=== PATIENT | female | born 1975 | race Caucasian/White ===

== ENCOUNTER → 2018-11-26 12:05 | Outpatient (CLI) | payer OTHER, SELFPAY ==
--- NOTE | 2018-11-26 | DI.US.S_ITS ---
PROCEDURE: US THYROID INDICATIONS: ROUTINE SCREENING GOITER TECHNIQUE: Real-time scanning was performed of the thyroid gland, with image documentation. COMPARISON: None. FINDINGS: Right: Thyroid lobe measures 4.4 x 1.1 x 1.2 cm, and is homogeneous in echotexture. Small colloid cyst. Left: Thyroid lobe measures 4.7 x 1.2 x 1.6 cm, and is homogenous in echotexture. Small colloid cyst. Isthmus: 2.0 mm thick. IMPRESSION: Multiple sub-5 mm bilateral colloid cyst; otherwise normal thyroid. Dictated by: Mikal LEY Interpreted: Silvino Larson MD on 11/26/2018 at 15:47 Approved by: Silvino Larson M.D. on 11/26/2018 at 17:14
--- NOTE | 2018-11-26 | DI.MG.S_ITS ---
BILATERAL DIGITAL SCREENING MAMMOGRAM 3D/2D WITH CAD: 11/26/2018 CLINICAL: Routine screening. Comparison is made to exam dated: 06/07/2016 mammogram - [facility]. The tissue of both breasts is heterogeneously dense. This may lower the sensitivity of mammography. Current study was also evaluated with a Computer Aided Detection (CAD) system. There are grouped calcifications in the left breast at 12 o'clock middle depth. There also are grouped calcifications in the left breast middle depth inferior region seen on the mediolateral oblique view only. No other significant masses, calcifications, or other findings are seen in either breast. IMPRESSION: INCOMPLETE: NEEDS ADDITIONAL IMAGING EVALUATION The grouped calcifications in the left breast at 12 o'clock middle depth are indeterminate. Spot magnification views are recommended. The grouped calcifications in the left breast middle depth inferior region seen on the mediolateral oblique view only are indeterminate. Spot magnification views are recommended. This exam was interpreted at Station ID: [id number]. NOTE: For mammograms, a report in lay terms will be sent to the patient. Approximately 15% of breast malignancies will not be visualized mammographically. In the management of a palpable breast mass, a negative mammogram must not discourage biopsy of a clinically suspicious lesion. Electronically Signed By: gamaliel Murillo M.D., M.D./adam:11/28/2018 10:43:11 letter sent: Additional Imaging Needed ACR BI-RADS Category 0: Incomplete [id number]
== END ==
PROVIDERS: Family Provider Family Medicine; PCP Family Medicine; Visit Provider Family Medicine
DX: Z12.31 Encounter for screening mammogram for malignant neoplasm of breast (principal); E04.2 Nontoxic multinodular goiter
CPT/HCPCS: 76536; 77063; 77067

== ENCOUNTER → 2018-12-18 12:36 | Outpatient (CLI) | payer OTHER, SELFPAY ==
--- NOTE | 2018-12-18 | DI.MG.S_ITS ---
UNILATERAL LEFT DIGITAL DIAGNOSTIC MAMMOGRAM 3D/2D WITH ADDITIONAL VIEWS: 12/18/2018 CLINICAL: Additional evaluation requested from prior study. Comparison is made to exams [facility]: [facility] and 06/07/2016 mammogram - [facility]. The tissue of left breast is heterogeneously dense. This may lower the sensitivity of mammography. The grouped coarse calcifications in the left breast (described as being at 12 o'clock middle depth and in the left breast middle depth inferior region seen on the mediolateral oblique view only on comparison screening mammogram of 11/26/18) persist with additional magnification views. These appear largely stable to comparison exam of 06/07/16. There is also a single puncate calcification of the left nipple. IMPRESSION: PROBABLY BENIGN Left breast calcifications as described above persist with additional magnification views. A follow-up diagnostic mammogram in 6 months is recommended to demonstrate stability. The patient is advised to monitor her breasts and to return sooner for reevaluation if she feels anything grow or change in her breasts. This exam was interpreted at Station ID: [id number]. NOTE: For mammograms, a report in lay terms will be sent to the patient. Approximately 15% of breast malignancies will not be visualized mammographically. In the management of a palpable breast mass, a negative mammogram must not discourage biopsy of a clinically suspicious lesion. Electronically Signed By: Domingo Armas M.D. ecl/:12/18/2018 13:35:02 letter sent: Followup Recommended ACR BI-RADS Category 3: Probably benign 3343F
== END ==
PROVIDERS: Family Provider Family Medicine; PCP Family Medicine; Visit Provider Family Medicine
DX: R92.1 Mammographic calcification found on diagnostic imaging of breast (principal)
CPT/HCPCS: 77065; G0279

== ENCOUNTER 2020-04-16 12:39 | Emergency (ER) | payer OTHER, SELFPAY ==
[2020-04-16 12:52] VITALS: BP 130/62; PULSE 60; RESP 16; TEMP 37.1; O2SAT 100; BMI 22.6
--- NOTE | 2020-04-16 13:37 | DI.RAD.S_ITS ---
PROCEDURE: XR LUMBAR SPINE 2-3V INDICATIONS: low back pain TECHNIQUE: 3 views of the lumbar spine were acquired. COMPARISON: None. FINDINGS: Bones: 5 vhl-hvy-ikexgpy vertebrae are present. There is normal bony alignment. No vertebral body compression fractures. No suspicious bony lesions. Soft tissues: Overlying bowel gas pattern is normal. No suspicious soft tissue calcifications. IMPRESSION: No evidence acute bony abnormality of the lumbar spine. If clinical suspicion and/or symptoms persist, further assessment with repeat plain films, or advanced imaging (e.g., CT, MRI, or bone scan) may be helpful for further assessment. Dictated by: Jamie Van M.D. on 04/16/2020 at 14:03 Approved by: Jamie Van M.D. on 04/16/2020 at 14:03
[2020-04-16] MEDS: CYCLOBENZAPRINE 10 MG TABLET PO (13:45)
[2020-04-16] MEDS: LIDOCAINE PATCH 1 EACH ADH..PATCH TOP (13:46)
[2020-04-16] MEDS: HYDROCODONE/ACET 5/325 TABLET 1 TAB PO ×2 (13:46→14:52)
[2020-04-16] MEDS: predniSONE 20 MG TABLET 60 MG PO (14:52)
--- NOTE | 2020-04-16 14:55 | ED_ITS ---
HPI - Back Pain/Injury <SIENNA Mcknight - Last Filed: 04/16/20 15:38> General Chief Complaint: Back Pain/Injury Stated Complaint: sciatica Time Seen by Provider: 04/16/20 12:54 Source: patient and family Mode of arrival: Family Vehicle Limitations: no limitations History of Present Illness HPI Narrative: The patient is a 44-year-old female nonsmoker who denies pertinent medical history, presents with a chief complaint of severe sciatica. She states that she has had this ongoing for the past 4 5 days after physical therapy session. She states she has never been diagnosed with sciatica, though thinks that is what she has. She states that her pain got really severe over the past 4 days, so much so she could not ambulate around the house and was lying flat on her back in the bed for the past few days. She notes that after she walked down the stairs this morning her pain was so bad that she ?collapsed.She has not taken anything for pain at home. She has not applied ice, or taken vpmw-qve-mblbzhy medications. She was seen by paramedics on [facility] where she lives, who gave her IM Toradol. She denies any incontinence of bowel, incontinence of bladder or numbness in her groin. She presents requesting an MRI today. She states that the pain feels like electric shocks running down the back of both of her legs. Related Data Previous Rx's Medication Instructions Recorded cyclobenzaprine 10 mg PO TID PRN #20 tab 04/16/20 hydrocodone-acetaminophen [[place]] 1 tab PO Q4-6H PRN #14 tab 04/16/20 lidocaine 1 patch TOPICAL DAILY PRN #15 ea 04/16/20 prednisone 50 mg PO DAILY #4 tab 04/16/20 Allergies Allergy/AdvReac Type Severity Reaction Status Date / Time No Known Drug Allergies Allergy Verified 04/16/20 14:51 Review of Systems <SIENNA Mcknight - Last Filed: 04/16/20 15:38> Review of Systems Narrative: GENERAL: Denies chills, fatigue, malaise, fever, sweats. HEENT: Denies sinus pain, ear pain, sore throat, difficulty swallowing, dizziness. RESPIRATORY: Denies dyspnea, cough, wheezing, hemoptysis, sputum. CARDIOVASCULAR: Denies chest pain, palpitations, orthopnea, edema, GASTROINTESTINAL: Denies nausea, vomiting, abdominal pain, diarrhea, constipation, melena. : Denies dysuria, frequency, incontinence, hematuria, urinary retention. MUSCULOSKELETAL: See HPI SKIN: Denies rash, skin lesions, or other NEUROLOGIC: Denies weakness, headache, numbness, change in speech, confusion, seizures, incoordination. PSYCHIATRIC: No concerning psychosocial issues. 12 point review of systems is negative except for those stated above Exam <MIGUEL Mcknight-BC - Last Filed: 04/16/20 15:38> Narrative Exam Narrative: GENERAL: This is a well-nourished, well-developed patient, in mild distress slightly tearful. HEAD: Atraumatic. Normocephalic. No temporal or scalp tenderness. EYES: Pupils equal round and reactive. Extraocular motions intact. No scleral icterus. No injection or drainage. ENT: Nose without bleeding, purulent drainage or septal hematoma. Wearing a mask. Airway patent. NECK: Trachea midline. No JVD or lymphadenopathy. Supple, nontender, no meningeal signs. CARDIOVASCULAR: Regular rate and rhythm RESPIRATORY: Clear to auscultation. Breath sounds equal bilaterally. No wheezes, rales, or rhonchi. No cough. No increased respiratory effort. No accessory muscle use GASTROINTESTINAL: Abdomen soft, non-tender, nondistended. No hepato- splenomegaly, or palpable masses. No guarding. EXTREMITIES: No clubbing, cyanosis, or edema. No joint tenderness, effusion, or edema noted. BACK: Midline CT and L-spine are Nontender without deformity or crepitance. No flank tenderness. Pain to palpation bilateral paraspinal muscles lumbar region. Pain on leg raise test bilaterally NEURO: AOx3. SKIN: No rash or erythema on visible skin Initial Vital Signs Initial Vital Signs: Vital Signs Temperature 98.8 F 04/16/20 12:52 Pulse Rate 60 04/16/20 12:52 Respiratory Rate 16 04/16/20 12:52 Blood Pressure 130/62 04/16/20 12:52 Pulse Oximetry 100 04/16/20 12:52 <Jena Hernandez DO - Last Filed: 04/19/20 07:23> Initial Vital Signs Initial Vital Signs: Vital Signs Temperature 98.8 F 04/16/20 12:52 Pulse Rate 60 04/16/20 12:52 Respiratory Rate 16 04/16/20 12:52 Blood Pressure 130/62 04/16/20 12:52 Pulse Oximetry 100 04/16/20 12:52 Scores <SIENNA Mcknight - Last Filed: 04/16/20 15:38> GCS Effort coma scale eye opening: Spontaneous Brandi coma scale verbal response: Orientated Brandi coma scale motor response: Obey commands Brandi coma scale total score: 15 Course <SIENNA Mcknight - Last Filed: 04/16/20 15:38> Orders Ordered: Discontinued Medications Hydrocodone Bitart/Acetaminophen (Hydrocodone/Acet 5/325 Tablet) 1 tab PO NOW ONE Stop: 04/16/20 13:38 Last Admin: 04/16/20 13:46 Dose: 1 tab Documented by: FELIZ Hydrocodone Bitart/Acetaminophen (Hydrocodone/Acet 5/325 Tablet) 1 tab PO NOW ONE Stop: 04/16/20 14:44 Last Admin: 04/16/20 14:52 Dose: 1 tab Documented by: FELIZ Cyclobenzaprine HCl (Cyclobenzaprine 10 Mg Tablet) 10 mg PO NOW ONE Stop: 04/16/20 13:38 Last Admin: 04/16/20 13:45 Dose: 10 mg Documented by: FELIZ Lidocaine (Lidocaine Patch 1 Each Adh..Patch) 1 each TOP NOW ONE Stop: 04/16/20 13:39 Last Admin: 04/16/20 13:46 Dose: 1 each Documented by: FELIZ Prednisone (Prednisone 20 Mg Tablet) 60 mg PO NOW ONE Stop: 04/16/20 14:44 Last Admin: 04/16/20 14:52 Dose: 60 mg Documented by: FELIZ Vital Signs Vital signs: Vital Signs - 8 hr 04/16/20 12:52 04/16/20 15:14 Temperature 98.8 F Pulse Rate 60 61 Respiratory Rate 16 16 Blood Pressure 130/62 130/62 Pulse Oximetry 100 100 <Jena Hernandez DO - Last Filed: 04/19/20 07:23> Orders Ordered: Discontinued Medications Hydrocodone Bitart/Acetaminophen (Hydrocodone/Acet 5/325 Tablet) 1 tab PO NOW ONE Stop: 04/16/20 13:38 Last Admin: 04/16/20 13:46 Dose: 1 tab Documented by: FELIZ Hydrocodone Bitart/Acetaminophen (Hydrocodone/Acet 5/325 Tablet) 1 tab PO NOW ONE Stop: 04/16/20 14:44 Last Admin: 04/16/20 14:52 Dose: 1 tab Documented by: FELIZ Cyclobenzaprine HCl (Cyclobenzaprine 10 Mg Tablet) 10 mg PO NOW ONE Stop: 04/16/20 13:38 Last Admin: 04/16/20 13:45 Dose: 10 mg Documented by: FELIZ Lidocaine (Lidocaine Patch 1 Each Adh..Patch) 1 each TOP NOW ONE Stop: 04/16/20 13:39 Last Admin: 04/16/20 13:46 Dose: 1 each Documented by: FELIZ Prednisone (Prednisone 20 Mg Tablet) 60 mg PO NOW ONE Stop: 04/16/20 14:44 Last Admin: 04/16/20 14:52 Dose: 60 mg Documented by: FELIZ Vital Signs Vital signs: Vital Signs - 8 hr 04/16/20 12:52 04/16/20 15:14 Temperature 98.8 F Pulse Rate 60 61 Respiratory Rate 16 16 Blood Pressure 130/62 130/62 Pulse Oximetry 100 100 MDM - Back Pain/Injury <SIENNA Mcknight - Last Filed: 04/16/20 15:38> Imaging Data Lumbar x-ray: Radiologist's Impression: [address] [place] [id number] ReportSigned Patient: Renetta PiperMR#: [id number]: 1975Acct:[id number]/Sex: 44 / FDate of Service: 04/16/20Loc: EDAccession Number: [id number] Procedure: XR lumbar spine 2-3V Ordering Provider: Tamiko Marinelli PROCEDURE: XR LUMBAR SPINE 2-3V INDICATIONS: low back pain TECHNIQUE: 3 views of the lumbar spine were acquired. COMPARISON: None. FINDINGS: Bones: 5 [id number]-ctskyhu vertebrae are present. There is normal bony alignment. No vertebral body compression fractures. No suspicious bony lesions. Soft tissues: Overlying bowel gas pattern is normal. No suspicious soft tissue calcifications. IMPRESSION: No evidence acute bony abnormality of the lumbar spine. If clinical suspicion and/or symptoms persist, further assessment with repeat plain films, or advanced imaging (e.g., CT, MRI, or bone scan) may be helpful for further assessment. Dictated by: Jamie Van M.D. on 04/16/2020 at 14:03 Approved by: Jamie Van M.D. on 04/16/2020 at 14:03 [facility] Narrative Medical decision making narrative: The patient is a 44-year-old female who presents with a chief complaint of lower back pain with associated sciatica bilaterally. The patient presents requesting an MRI specifically, denies any incontinence of bowel, incontinence of bladder or numbness in her groin. I did discuss at length that these are strict emergency department return precautions. X-ray has no acute findings. The patient does feel much improved after the above-stated therapies, is able to ambulate around her room independently. The patient appears to have concerns about going home and taking medications, though I encouraged her to follow up with primary care provider in the next few days. She does appear distant chance id that she cannot obtain a MRI of her spine today, but I discussed that conservative measures are appropriate in this case, especially given her lack of neurological side effects. Discussed at length with her of strict return precautions including incontinence of bowel, incontinence of bladder numbness in her groin. I encouraged her to for call her primary care provider on Saturday to get it for re-evaluation. I did encourage her to take the prescribed medications as needed and able, discussed that I think she may have increased her pain by lying on her back for several days without taking [id number]-yvg-[id number] medications to help treat her pain, which may have caused her to tighten up. Discharge Plan Departure Patient Disposition: Home Clinical Impression: Lower back pain Qualifiers: Chronicity: acute Back pain laterality: bilateral Sciatica presence: with sciatica Sciatica laterality: bilateral sciatica Qualified Code(s): M54.42 - Jeanne mbago with sciatica, left side Instructions: DI for Low Back Pain, DI for Back Pain With Sciatica, DI for Back Spasm Activity Restrictions/Additional Instructions: Thank you for trusting us with your care today As I discussed, your x-ray shows no acute fracture. This does not rule out a soft tissue injury such as a ligament or tendon injury. It is important that you follow up with primary care provider, especially if worsening or no improvement. There can be fractures that did not show up on initial x-ray. I sent several prescriptions to [facility] in [place] for you. I have given you a prescription of a narcotic for pain. Be aware that this can be constipating and sedating. I encouraged taking with a stool softener, pushing fluids and fiber. Do not take and drive, operate heavy machinery, etc. Do not combine it with any other sedating substances such as alcohol. The combination of narcotics and alcohol and/or other sedatives can be lethal. Please be aware that we do not provide refills of controlled substances in the emergency department. Please follow up with her primary care provider. Please be aware that the cyclobenzaprine or Flexeril can be sedating. I also sent in a prescription of lidocaine patches. This can be applied for 12 hours then removed. You can apply a new patch 12 hours later. Do not use heat over the lidocaine patches I also sent in a prescription of prednisone for you. Please start this tomorrow as we gave you a dose in the emergency department today. Please follow-up with primary care provider in the next few days. Please call him on Saturday. Please come back to the emergency department for any acute concerns such as incontinence of bowel, incontinence of bladder or numbness in your groin. Prescriptions: New hydrocodone-acetaminophen [[place]] 5-325 mg tablet 1 tab PO Q4-6H PRN (Reason: pain) Qty: 14 RF: 0 cyclobenzaprine 10 mg tablet 10 mg PO TID PRN (Reason: muscle spasm) Qty: 20 RF: 0 prednisone 50 mg tablet 50 mg PO DAILY Qty: 4 RF: 0 lidocaine 5 % adhesive patch,medicated 1 patch topical DAILY PRN (Reason: pain) Qty: 15 RF: 0 Referrals: Pepe Hernandez MD [Non-Staff] - Ollie Watson MD [Primary Care Provider] - <Jena Hernandez DO - Last Filed: 04/19/20 07:23> Cosign ED Attending Dulceature Attestation: I was immediately available in the department for consultation. Documentation has been reviewed. I agree with assessment and plan.
[2020-04-16 15:14] VITALS: BP 130/62; PULSE 61; RESP 16; O2SAT 100
== END 2020-04-16 15:52 | disposition home or self-care (01) ==
PROVIDERS: Emergency Provider Nurse Practitioner Family; Family Provider Family Medicine; PCP Family Medicine
DX: M54.42 Lumbago with sciatica, left side (principal)
CPT/HCPCS: 72100; 99283

== ENCOUNTER → 2020-04-23 11:33 | Outpatient (CLI) | payer OTHER, SELFPAY ==
--- NOTE | 2020-04-23 11:36 | DI.MRI.S_ITS ---
PROCEDURE: MR LUMBAR SPINE WO CON INDICATIONS: Disease of spinal cord, unspecified TECHNIQUE: Noncontrast sagittal T1 spin echo and T2 fast echo, sagittal STIR, axial T1 and T2 fast spin echo through the lumbar spine. In cases with scoliosis, additional coronal T2 fast spin echo may be performed. COMPARISON: None. FINDINGS: Image quality: Excellent. Alignment and Curvature: There is normal bony alignment. Bone Marrow: Marrow is of normal overall signal. No acute vertebral body compression fractures. Spinal Cord: Conus medullaris terminates at the normal level. Visualized cord demonstrates normal signal and size. Paraspinous Soft Tissues: No paravertebral masses. T12-L1: Normal appearance. L1-L2: Normal appearance. L2-L3: Normal appearance. L3-L4: Normal appearance. L4-L5: Disc bulge flattens the ventral thecal sac. Foraminal components of the disc bulge contribute to mild neural foraminal stenosis bilaterally. L5-S1: Disc bulge and a superimposed disc extrusion flatten and indent the ventral thecal sac. Extruded disc material measures approximately 0.9 x 1.7 cm in axial dimension and 1.3 cm in craniocaudal dimension. Disc material displaces and probably impinges upon the descending right S1 and S2 nerve roots within the right subarticular zone. There is overall moderate spinal canal stenosis and severe subarticular zone stenosis on the right. Foraminal components of the disc bulge and facet hypertrophy contribute to mild bilateral neural foraminal stenosis. IMPRESSION: Large disc extrusion at L5-S1 producing probable impingement on the descending right S1 and S2 nerve roots. Dictated by: Sreedhar Champion M.D. on 04/25/2020 at 9:06 Approved by: Sreedhar Champion M.D. on 04/25/2020 at 9:08
== END ==
PROVIDERS: Family Provider Family Medicine; PCP Family Medicine; Referring Provider Family Medicine; Visit Provider Family Medicine
DX: G95.9 Disease of spinal cord, unspecified (principal); M51.27 Other intervertebral disc displacement, lumbosacral region
CPT/HCPCS: 72148

== ENCOUNTER → 2022-04-23 09:07 | Outpatient (CLI) | payer OTHER, SELFPAY ==
[2022-04-25 10:09] LABS: Fecal Immunochemical Test Negative (Negative)
== END ==
PROVIDERS: Family Provider Family Medicine; PCP Physician Assistant Medical; Visit Provider Physician Assistant Medical
DX: M48.061 Spinal stenosis, lumbar region without neurogenic claudication (principal); M54.30 Sciatica, unspecified side; R10.9 Unspecified abdominal pain
CPT/HCPCS: 82274

== ENCOUNTER → 2022-04-25 14:46 | Outpatient (CLI) | payer OTHER, SELFPAY ==
--- NOTE | 2022-04-25 15:34 | DI.US.S_ITS ---
PROCEDURE: US PELVIC COMPLETE INDICATIONS: left sided pelvic pain TECHNIQUE: Real-time scanning was performed of the pelvic organs, with image documentation. Additional endovaginal scanning was necessary due to incomplete visualization of the adnexal and endometrial structures by transabdominal scanning. COMPARISON: None. FINDINGS: Uterus: Uterus is anteverted and enlarged in size at 10.1 x 4.5 x 5.7 cm. The myometrium is heterogeneous. No discrete uterine fibroid is seen. The endometrium measures 4 mm combined thickness. Heterogeneous endometrial echotexture is seen with tiny cystic changes concerning for adenomyosis. Ovaries: The right ovary measures 2.7 x 1.2 x 1.7 cm, with a calculated ovarian volume of 2.9 cc. The left ovary measures 4.6 x 2.4 x 3.5 cm, with a calculated ovarian volume of 20.1 cc. 2.7 x 2.4 x 2.8 cm simple appearing left ovarian cyst is seen. Less than 12 follicles can be seen in each ovary. No adnexal masses are seen. Other: No pathologic free abdominal or pelvic fluid. IMPRESSION: 1. Enlarged uterus. No discrete uterine fibroid. 2. Endometrium is normal in thickness and show heterogeneous echotexture with tiny cystic changes concerning for adenomyosis. 3. Simple cyst in left ovary as above. No solid appearing ovarian lesion. No evidence of ovarian torsion. We strive to produce accurate, complete, and clear reports of imaging services. To assist us in improving patient care, this report was composed using standard report templates and voice recognition software. Therefore, it may contain abnormal punctuation, insertions and/or omissions. Occasional wrong-word or sound-alike substitutions may occur. Though we review the report and make efforts to correct it, we do recommend that the report be read carefully in proper context to recognize any text inaccuracies. Dictated by: Joel Adams M.D. on 04/25/2022 at 18:01 Approved by: Joel Adams M.D. on 04/25/2022 at 18:03
== END ==
PROVIDERS: Family Provider Family Medicine; PCP Physician Assistant Medical; Referring Provider Physician Assistant Medical; Visit Provider Physician Assistant Medical
DX: N83.292 Other ovarian cyst, left side (principal); N85.2 Hypertrophy of uterus; R10.9 Unspecified abdominal pain
CPT/HCPCS: 76830; 76856

== ENCOUNTER → 2022-05-03 10:37 | Outpatient (CLI) | payer OTHER, SELFPAY ==
--- NOTE | 2022-05-03 10:38 | DI.MG.S_ITS ---
BILATERAL DIGITAL DIAGNOSTIC MAMMOGRAM 3D/2D: 05/03/2022 CLINICAL: Short term follow up of the left breast, due for bilateral imaging. Comparison is made to exams dated: 12/18/2018 mammogram and 11/26/2018 mammogram - [facility]. Both breasts are heterogeneously dense, which may obscure small masses (category c / 51-75% glandular tissue). There is a stable fine and punctate calcification in the left breast at 12 o'clock anterior depth. No other significant masses, calcifications, or other findings are seen in either breast. IMPRESSION: BENIGN There is no mammographic evidence of malignancy. Grouped fine and punctate calcification in the left breast at 12 o'clock anterior depth demonstrate long-term stability and are benign. A 1 year screening mammogram is recommended. Based on the Tyrer Cuzick model (a risk assessment model) the patient's lifetime risk is 13.7% and her 10 year risk is 2.9%. According to the ACR, ACS, and NCCN guidelines, an annual breast MRI exam along with mammogram is recommended if the patient's lifetime risk is 20% or greater. This exam was interpreted at Station ID: [id number]. NOTE: For mammograms, a report in lay terms will be sent to the patient. Approximately 15% of breast malignancies will not be visualized mammographically. In the management of a palpable breast mass, a negative mammogram must not discourage biopsy of a clinically suspicious lesion. Electronically Signed By: Silvino Larson M.D. [facility] [place]/:05/03/2022 11:23:46 letter sent: Normal Exam ACR BI-RADS Category 2: Benign Finding(s) 3342F
== END ==
PROVIDERS: Family Provider Family Medicine; PCP Physician Assistant Medical; Referring Provider Physician Assistant Medical; Visit Provider Physician Assistant Medical
DX: R92.8 Other abnormal and inconclusive findings on diagnostic imaging of breast (principal); R92.1 Mammographic calcification found on diagnostic imaging of breast
CPT/HCPCS: 77066; G0279

== ENCOUNTER → 2022-05-09 12:33 | Outpatient (CLI) | payer OTHER, SELFPAY ==
--- NOTE | 2022-05-09 12:36 | DI.US.S_ITS ---
PROCEDURE: US ABDOMEN LIMITED INDICATIONS: LLQ discomfort/sensation of abnormalities TECHNIQUE: Real-time focused scanning was performed of the abdomen, with image documentation. COMPARISON: None. FINDINGS: Limited images of the left lower quadrant demonstrate no evidence of hernia corresponding to the area of pain. Normal appearing left ovary. Normal peristalsing bowel. IMPRESSION: Unremarkable limited abdominal ultrasound in the area of patient discomfort. Dictated by: Jamie Van M.D. on 05/09/2022 at 15:15 Approved by: Jamie Van M.D. on 05/09/2022 at 15:16
== END ==
PROVIDERS: Family Provider Family Medicine; PCP Physician Assistant Medical; Referring Provider Nurse Practitioner Adult Health; Visit Provider Nurse Practitioner Adult Health
DX: R10.32 Left lower quadrant pain (principal); M25.552 Pain in left hip
CPT/HCPCS: 76705

== ENCOUNTER → 2022-06-19 10:26 | Outpatient (CLI) | payer OTHER, SELFPAY ==
[2022-06-19 19:50] LABS: Alanine Aminotransferase 16 IU/L (<35); Albumin 4.1 g/dL (3.5-5.0); Albumin Globulin Ratio 1.4 (1.0-2.8); Alkaline Phosphatase 61 U/L (38-126); Aspartate Aminotransferase 24 IU/L (14-36); BUN Creatinine Ratio 17.3 (6-22); Bilirubin Total 0.6 mg/dL (0.2-1.3); Blood Urea Nitrogen 14 mg/dL (7-17); Calcium 9.2 mg/dL (8.4-10.2); Carbon Dioxide 31 mmol/L (22-32); Chloride 101 mmol/L (98-107); Estimated Glomerular Filt Rate > 60 mL/min (>60); Glucose 78 mg/dL (70-100); HEMOLYSIS < 15 (0-50); Potassium 4.1 mmol/L (3.4-5.1); Sodium 138 mmol/L (137-145); Total Protein 7.1 g/dL (6.3-8.2)
[2022-06-19 19:56] LABS: Add Manual Diff / Slide Review NO; Basophils Absolute Auto 100 /uL (0-100); Eosinophils Absolute Auto 100 /uL (0-450); Eosinophils Percent Auto 1.7 % (2-4); Hematocrit 36.6 % (36-46); Hemoglobin 12.4 g/dL (12.0-16.0); Lymphocytes Absolute Auto 1600 /uL (1100-4500); Lymphocytes Percent Auto 29.8 % (25-40); Mean Corpuscular HGB Conc 33.9 % (30-36); Mean Corpuscular Hemoglobin 30.7 PG (26-34); Mean Corpuscular Volume 90.5 fL (80-100); Monocytes Absolute Auto 400 /uL (0-900); Monocytes Percent Auto 6.6 % (3-14); Neutrophils Absolute Auto 3300 /uL (1500-7000); Neutrophils Percent Auto 60.9 % (50-75); Platelet Count 209 X10^3/uL (150-400); Red Blood Cell Count 4.05 X10^6/uL (4.0-5.2); Red Cell Distribution Width 12.9 % (11.6-14.8); White Blood Cell Count 5.5 X10^3/uL (4.5-11.0)
[2022-06-19 20:06] LABS: Cholesterol 176 mg/dL (140-199); HDL Cholesterol 57 mg/dL (40-60); LDL Cholesterol Calculated 107 mg/dL (<100); Triglycerides 62 mg/dL (35-150)
[2022-06-19 20:19] LABS: TSH w/ Reflex to FT4 1.18 uIU/mL (0.47-4.68)
[2022-06-19 20:39] LABS: Cancer Antigen 125 11.4 U/mL (0-35)
== END ==
PROVIDERS: Family Provider Family Medicine; PCP Physician Assistant Medical; Visit Provider Nurse Practitioner Adult Health
DX: R10.9 Unspecified abdominal pain (principal); N92.6 Irregular menstruation, unspecified; R10.32 Left lower quadrant pain
CPT/HCPCS: 80053; 80061; 84443; 85025; 86304

== ENCOUNTER → 2024-01-13 11:45 | Outpatient (CLI) | payer OTHER, SELFPAY ==
[2024-01-13 19:44] LABS: Follicle Stimulating Hormone 75.4 mIU/mL
== END ==
PROVIDERS: Family Provider Family Medicine; PCP Physician Assistant Medical; Visit Provider Physician Assistant Medical
DX: N92.6 Irregular menstruation, unspecified (principal)
CPT/HCPCS: 83001

== ENCOUNTER → 2024-03-25 11:07 | Outpatient (CLI) | payer OTHER, SELFPAY ==
[2024-03-25 18:51] LABS: Add Manual Diff / Slide Review NO; Basophils Absolute Auto 0 /uL (0-100); Basophils Percent Auto 0.5 % (0-2); Eosinophils Absolute Auto 100 /uL (0-450); Hematocrit 39.7 % (36-46); Hemoglobin 13.2 g/dL (12.0-16.0); Lymphocytes Absolute Auto 2000 /uL (1100-4500); Lymphocytes Percent Auto 28.7 % (25-40); Mean Corpuscular HGB Conc 33.3 % (30-36); Mean Corpuscular Hemoglobin 30.7 PG (26-34); Mean Corpuscular Volume 92.2 fL (80-100); Monocytes Absolute Auto 400 /uL (0-900); Neutrophils Absolute Auto 4400 /uL (1500-7000); Neutrophils Percent Auto 62.8 % (50-75); Platelet Count 245 X10^3/uL (150-400); Red Cell Distribution Width 12.8 % (11.6-14.8)
[2024-03-25 18:58] LABS: Alanine Aminotransferase 16 IU/L (<35); Albumin 4.3 g/dL (3.5-5.0); Albumin Globulin Ratio 1.5 (1.0-2.8); Alkaline Phosphatase 68 U/L (38-126); Aspartate Aminotransferase 30 IU/L (14-36); BUN Creatinine Ratio 12.7 (6-22); Bilirubin Total 0.6 mg/dL (0.2-1.3); Blood Urea Nitrogen 10 mg/dL (7-17); Calcium 9.4 mg/dL (8.4-10.2); Carbon Dioxide 30 mmol/L (22-32); Chloride 103 mmol/L (98-107); Cholesterol 183 mg/dL (140-199); Estimated Glomerular Filt Rate > 60 mL/min (>60); Globulin 2.8 g/dL (1.7-4.1); Glucose 83 mg/dL (70-100); HDL Cholesterol 58 mg/dL (40-60); HEMOLYSIS < 15 (0-50); LDL Cholesterol Calculated 112 mg/dL (<100); Potassium 4.1 mmol/L (3.4-5.1); Sodium 139 mmol/L (137-145); Total Protein 7.1 g/dL (6.3-8.2); Triglycerides 63 mg/dL (35-150)
[2024-03-25 19:28] LABS: TSH w/ Reflex to FT4 1.02 uIU/mL (0.47-4.68)
== END ==
PROVIDERS: Family Provider Family Medicine; PCP Physician Assistant Medical; Referring Provider Physician Assistant Medical; Visit Provider Physician Assistant Medical
DX: R00.2 Palpitations (principal)
CPT/HCPCS: 80053; 80061; 84443; 85025

== ENCOUNTER → 2024-04-27 14:01 | Outpatient (CLI) | payer OTHER, SELFPAY ==
--- NOTE | 2024-04-27 14:04 | DI.ECHO.S_ITS ---
[place] : : [id number] : : [place] : : [id number] : : Phone: [phone] Echocardiogram Report + + :Name: COLIN BREWER Study Date: 04/27/2024 Height: 66 in : :[facility] ReadingLocation: Weight: 135 lb : : Gender: Female BSA: 1.7 m2 : :: 1975 Age: 48 yrs BP: 100/62 mmHg: :Reason For Study: PALPITATIONS : :Ordering Physician: KANE, : :CARLA Performed By: Melonie Villaseñor : :Referring: CARLA MIDDLETON : + + Interpretation Summary Normal left ventricle size with ejection fraction 60-65%. Both atria are normal in size. Procedure: Images were not obtained from all of the standard acoustic windows due to the limited scope of the study. The study quality was technically adequate. There is no prior echocardiogram noted for this patient. The patient was in sinus bradycardia with heart rates between 57-94 bpm during the exam. Left Ventricle: The left ventricle is normal in size and wall thickness. The ejection fraction is estimated to be 60-65%. There are no focal wall motion abnormalities. Atria: Both atria are normal in size. Mitral Valve: The mitral valve leaflets appear to open well. Aortic Valve: The aortic valve opens well. Tricuspid Valve: The tricuspid valve leaflets are thin and pliable. There is trace tricuspid regurgitation. The right ventricular systolic pressure is estimated to be at least 21 mmHg based on an estimated right atrial pressure of 3 mm Hg. Great Vessels: The IVC is of normal diameter and collapses greater than 50% with a sniff. This suggests a low right atrial pressure of 3 mm Hg. Pericardium/ Pleura There is no pericardial effusion. There is no pleural effusion. MMode/2D Measurements & Calculations LVIDd: 4.0 cm LA A2 area: 16.3 cm2 LVIDs: 3.0 cm LA A4 area: 17.1 cm2 FS: 25.9 % LA length (vol): 4.6 cm IVSd: 0.78 cm LA vol: 50.6 ml LVPWd: 0.87 cm LA vol index: 29.9 ml/m2 LV youssef. diameter/BSA (cm/m^2): 2.4 LV sys. diameter/BSA (cm/m^2): 1.8 RA long axis: 4.8 cm RA area: 15.9 cm2 RA vol: 44.9 ml RA : 26.5 ml/m2 IVC diam: 1.8 cm Doppler Measurements & Calculations TR max quique: 212.6 cm/sec TR max P.1 mmHg Electronically signed by: Funmilayo Doe on Reading Physician:04/27/2024 04:32 PM
== END ==
PROVIDERS: Family Provider Family Medicine; PCP Physician Assistant Medical; Referring Provider Physician Assistant Medical; Visit Provider Physician Assistant Medical
DX: R00.2 Palpitations (principal)
CPT/HCPCS: 93307

== ENCOUNTER → 2024-06-04 15:19 | Outpatient (CLI) | payer OTHER, SELFPAY ==
--- NOTE | 2024-06-04 17:38 | DI.NM.S_ITS ---
DATE OF SERVICE: 06/04/2024 EXERCISE STRESS TEST INDICATIONS: Palpitation. CARDIAC STRESS: The patient walked on Vimal protocol for 12 minutes and 1 second, achieved maximum heart rate of 156, which was 108% of target heart rate with normal blood pressure response. Peak blood pressure 144/88 and resting blood pressure 102/64. JENNIFER -51%. Baseline rhythm sinus with diffuse repolarization changes. During stress, no convincing ischemic changes. The patient remained to have nonspecific upsloping ST depression in inferior lateral leads, which is part of baseline repolarization changes. No significant arrhythmias. No chest pain. Some shortness of breath. CONCLUSION: Exercise stress test is negative for inducible ischemia. Excellent exercise tolerance. Normal hemodynamic response. No convincing ischemic changes or significant arrhythmias or anginal symptoms. Overall, low-risk exercise stress test. Renetta Piper - PRINCE/anel/SIMÓN doc#: [id number]/job#: [id number] dd: 06/04/2024 16:51:00 dt: 06/04/2024 17:28:00 DICTATING /COPIES TO: Fadia Knowles MD COPIES MNE: LAVELL;
== END ==
PROVIDERS: Family Provider Family Medicine; PCP Family Medicine; Referring Provider Physician Assistant Medical; Visit Provider Physician Assistant Medical
DX: R00.2 Palpitations (principal)
CPT/HCPCS: 93017

== ENCOUNTER → 2024-11-24 12:19 | Outpatient (CLI) | payer OTHER, SELFPAY ==
--- NOTE | 2024-11-24 12:25 | DI.MRI.S_ITS ---
PROCEDURE: MR LUMBAR SPINE WO CON INDICATIONS: Lumbar PAIN TECHNIQUE: Noncontrast sagittal T1 spin echo and T2 fast echo, sagittal STIR, and T2 fast spin echo through the lumbar spine. In cases with scoliosis, additional coronal T2 fast spin echo may be performed. COMPARISON: [facility], MR, MR LUMBAR SPINE WO CON, 04/23/2020, 11:54. FINDINGS: Image quality: Excellent. Alignment and Curvature: Straightening of the normal lumbar lordosis. Minimal retrolisthesis of L5 on S1. Bone Marrow: Marrow is of normal overall signal. No acute vertebral body compression fractures. Spinal Cord: Conus medullaris terminates at the L1-L2 level. Visualized cord demonstrates normal signal and size. Paraspinous Soft Tissues: No paravertebral masses. T12-L1: Normal appearance. L1-L2: Disc desiccation and mild diffuse disc bulge with small superimposed right paracentral disc protrusion. No central canal or neural foraminal stenosis. Stable compared to prior. L2-L3: Mild facet arthropathy. No central canal or neural foraminal stenosis. L3-L4: Mild facet arthropathy. No central canal or neural foraminal stenosis. L4-L5: Disc desiccation and mild disc bulge. Facet arthropathy. No central canal stenosis. Mild bilateral neural foraminal stenosis is stable. L5-S1: Disc desiccation and moderate height loss. Mild diffuse disc bulge. Improvement/resolution of prior disc extrusion. New small left subarticular disc protrusion. Mild facet arthropathy. No significant central canal stenosis. Mild bilateral neural foraminal stenosis. IMPRESSION: Degenerative changes of the lumbar spine as described above, most pronounced at L4-5. Improvement/resolution of prior L5-S1 disc protrusion. No high-grade stenosis. Dictated by: Bc Palomo M.D. on 11/24/2024 at 13:48 Approved by: Bc Palomo M.D. on 11/24/2024 at 14:10
--- NOTE | 2024-11-24 12:26 | DI.RAD.S_ITS ---
PROCEDURE: XR LUMBAR SPINE MIN 4V INDICATIONS: PAIN TECHNIQUE: 5 views of the lumbar spine acquired, including flexion and extension views. COMPARISON: [facility], MR, MR LUMBAR SPINE WO CON, 11/24/2024, 12:31. [facility], CR, XR LUMBAR SPINE 2-3V, 04/16/2020, 13:43. FINDINGS/IMPRESSION: Multilevel degenerative disc disease better characterized on same day lumbar MRI. No listhesis or abnormal motion with flexion or extension. Dictated by: Kb Arnold M.D. on 11/24/2024 at 15:15 Approved by: Kb Arnold M.D. on 11/24/2024 at 15:16
== END ==
PROVIDERS: Family Provider Family Medicine; PCP Family Medicine; Referring Provider Family Medicine; Visit Provider Family Medicine
DX: M51.27 Other intervertebral disc displacement, lumbosacral region (principal); M47.816 Spondylosis without myelopathy or radiculopathy, lumbar region; M47.817 Spondylosis without myelopathy or radiculopathy, lumbosacral region
CPT/HCPCS: 72110; 72148